=== PATIENT | male | born 1965 | race Caucasian/White ===

== ENCOUNTER → 2021-09-22 | Outpatient (CLI) | payer OTHER ==
[~2021-09-22] MED LIST: ALBUTEROL1.25 MG/3 INH; COLACE 100MG C100 MG PO; ELAVIL 25 MG TA25 MG PO; HABITROL 21 MG P1 EA TOP; LEVAQUIN500 MG PO; LORTAB 7.5-3251 EACH PO; PROAIR HFA8.5 GM INH; SPIRIVA RESPIMAT4 GM INH; VISTARIL25 MG PO
== END ==
LOC: HEART 5 10:52
DX: J44.9 Chronic obstructive pulmonary disease, unspecified (principal); R94.2 Abnormal results of pulmonary function studies
CPT/HCPCS: 94060; 94729